=== PATIENT | male | born 1950 | race Caucasian/White ===

== ENCOUNTER 2018-02-11 20:08 | Emergency (ER) | payer OTHER ==
[~2018-02-11] VITALS: Ht 172.7 cm; Wt 70.3 kg
[2018-02-11 20:13] VITALS: BP 145/77
[2018-02-11] MEDS ORDERED: OMEPRAZOLE 20 M20 M1 PO (20:18)
[2018-02-11] MEDS ORDERED: ATORVASTATIN CA40 MG PO (20:18)
[2018-02-11] MEDS ORDERED: IBUPROFEN 600600 M1 PO (20:53)
== END 2018-02-11 21:10 | disposition home or self-care (01) ==
LOC: ER 20:08
DX: S90.32XA Contusion of left foot, initial encounter (principal); W20.8XXA Other cause of strike by thrown, projected or falling object, initial encounter; Y93.89 Activity, other specified; Y92.89 Other specified places as the place of occurrence of the external cause; Y99.8 Other external cause status